=== PATIENT | male | born 1960 | race African-American/Black ===

== ENCOUNTER 2023-04-26 17:22 | Emergency (ER) | payer OTHER ==
[~2023-04-26] VITALS: Ht 167.6 cm; Wt 68.0 kg
[2023-04-26 19:00] VITALS: BP 100/60
[2023-04-26 19:15] VITALS: BP 115/60
[2023-04-26] MEDS ORDERED: CRUTCH (19:27)
[2023-04-26] MEDS ORDERED: KNEE IMMOBILIZE1 MIS (19:27)
[2023-04-26] MEDS ORDERED: PERCOCET 5/325M1 TAB PO ×2 (19:27→19:30)
[2023-04-26 19:30] VITALS: BP 95/71
[2023-04-26 19:46] VITALS: BP 112/63
[2023-04-26 20:00] VITALS: BP 113/67
[2023-04-26 20:16] VITALS: BP 113/67
== END 2023-04-26 20:17 | disposition designated cancer center or children's hospital (05) | DRG 563 ==
LOC: ED 17:22
DX: S82.002A Unspecified fracture of left patella, initial encounter for closed fracture (principal); W50.1XXA Accidental kick by another person, initial encounter; Y93.67 Activity, basketball; Y92.149 Unspecified place in prison as the place of occurrence of the external cause